=== PATIENT | male | born 1980 | race Caucasian/White ===

== ENCOUNTER 2021-05-09 12:19 | Emergency (ER) | payer BC, SELFPAY ==
--- NOTE | ~2021-05-09 | XR_ITS ---
EXAMINATION: XR elbow RT min 3V DATE: 05/09/2021 13:38 INDICATION: Right elbow pain. TECHNIQUE: 4 views of right elbow were obtained. COMPARISON: None. FINDINGS: Bone alignment is normal. No fracture. There is mild elbow joint osteoarthritis characteriz ed by a tiny osteophyte of radial head. There is an enthesophyte at olecranon with overlying soft tis brian swelling, consistent with bursitis. No elbow joint effusion. IMPRESSION: 1. Olecranon bursitis. 2. Mild elbow joint osteoarthritis. Reviewed, dictated and finalized at location A.
[2021-05-09 12:28] VITALS: BP 141/82; PULSE 82; RESP 18; TEMP 36.7; O2SAT 99
--- NOTE | 2021-05-09 12:50 | ED.UPPEXIN ---
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 He for started noticing it months before this did not really notice the development of the lesion until the last 30 days. Position change in his arm does not really change the pain reproduction Patient states he has a cyst on his left long and was diagnosed when he was spitting up blood but has not had problems with this since then. He has also had facial reconstruction and oral surgery Related Data Allergies Allergy/AdvReac Type Severity Reaction Status Date / Time Penicillins AdvReac Nausea and Verified 05/09/21 12:39 Vomiting Review of Systems Review of Systems: Narrative: CONSTITUTIONAL: Denies fever, chills, sweats. EYES: Denies visual changes, redness, discharge. ENT: Denies rhinorrhea, congestion, sore throat, otalgia. CARDIOVASCULAR: Denies chest pain, palpitations, edema. RESPIRATORY: Denies dyspnea, wheezing, cough GASTROINTESTINAL: Denies abdominal pain, nausea, vomiting, diarrhea. GENITOURINARY: Denies dysuria, hematuria, abnormal discharge SKIN: Denies rash or itching. NEUROLOGIC: Denies numbness, or focal weakness. PSYCHIATRIC: Denies anxiety or depression. Right olecranon lesion that is painful PMFSH Past Medical History Medical History No acute medical problems Family History Family History Other Diabetes mellitus Social History Social History (Updated 05/09/21 @ 13:00 by Breanna Crespo CNP) Smoking packs per day: 1 Smoking cigarettes per day: 20.0 Smoking status: Current every day smoker Tobacco type: cigarettes Alcohol intake: current Gender identity (if verbalized by the patient): Male Comments At time of signature, I agree with nursing past medical, surgical, social and family history. There is no relevant family history pertinent to the presenting complaint. Blood pressure elevated at this visit, follow-up with primary care physician this week Exam Narrative: Exam Narrative: GENERAL: This is a well-nourished, well-developed patient, in mild distress. HEAD: normocephalic, atraumatic. EYES: Sclera clear/white. Vision is grossly intact. EARS: External ears normal, Hearing grossly intact. NOSE: External nose normal without nasal discharge, nares without redness, no rhinorrhea. THROAT: Mucous membranes moist, NECK: Neck supple, non-tender CARDIOVASCULAR: Regular rate and rhythm without murmurs, gallops, or rubs. RESPIRATORY: Clear to auscultation. Breath sounds equal bilaterally. No wheezes, rales, or rhonchi. GASTROINTESTINAL: Abdomen soft, SKIN: warm, intact with no suspicious lesions or rash, good texture and turgor. NEURO: awake, alert, and oriented to person, place and time. There were no obvious focal neurologic abnormalities. Steady gait EXTREMITIES: Normal range of motion. Left lateral olecranon pain with extension of arm and blank driller strength is equally affected being 3 out of 5 on the right and 5 out of 5 on left when he flexes arm pain diminishes BACK: Nontender without deformity Course Course Emergency Course: Patient here for evaluation of a lesion on his olecranon of his right arm Will be referred to [facility] for an x-ray of his right elbow Started on steroids Follow-up with orthopedics, if positive finding on x-ray or pain continues Vital Signs Vital signs: Vital Signs Temperature 98.0 F 05/09/21 12:28 Pulse Rate 82 05/09/21 12:28 Respiratory Rate 18
--- NOTE | 2021-05-09 13:36 | PC.NURSE ---
1332-Pt arrived ambulatory from [facility] for x ray and disposition. Verbal report received from ANUJA Snow. No change from previous assessment.
--- NOTE | 2021-05-09 14:18 | PC.NURSE ---
1416-Pt instructed to take medication as prescribed. Pt also instructed regarding OTC meds and home care. Pt to follow up with pcp if symptoms don't improve, or go to ED for worsening symptoms. Pt verbalized understanding regarding all education. Pt discharged ambulatory from [facility] with no issues noted. Pt denies new complaints.
== END 2021-05-09 14:16 | disposition home or self-care (01) ==
PROVIDERS: Emergency Provider Nurse Practitioner Family
DX: M70.21 Olecranon bursitis, right elbow (principal); F17.210 Nicotine dependence, cigarettes, uncomplicated
CPT/HCPCS: 73080; 99203; G0463